=== PATIENT | female | born 1985 | race American Indian/Alaskan Native ===

== ENCOUNTER 2025-07-29 16:44 | Emergency (ER) | payer MEDICAID, OTHER ==
[~2025-07-29] VITALS: Ht 160 cm; Wt 114.0 kg
[~2025-07-29 16:44] MED LIST: ALDACTONE25 MG PO
[2025-07-29] MEDS ORDERED: SODIUM CHLORIDE 0.9% 500 ML IV ONE (17:15)
[2025-07-29] MEDS ORDERED: SODIUM CHLORIDE 0.9% 1,000 ML IV PRN (17:15)
[2025-07-29 17:22] LABS: BASOPHILS 0.6 % (0.1-1.2); EOSINOPHILS 0 % (0.7-5.8); LYMPHOCYTES 11.6 % (19.3-51.7); MCH 30.0 PG (25.6-32.2); MCHC 34.5 g/dL (32.2-35.5); MCV 86.9 fL (79.4-94.8); MONOCYTES 8.8 % (4.7-12.5); NEUTROPHILS 78.8 % (34.0-71.1); RBC 4.20 M/uL (3.93-5.22)
[2025-07-29 17:36] LABS: ALT (SGPT) 36.0 U/L (14-59); AST (SGOT) 61.0 U/L (15-37); GLOMERULAR FILTRATION RATE,EST 88.0 mL/min (>60); PROTEIN, TOTAL 7.6 g/dL (6.4-8.2); UREA NITROGEN 12.0 mg/dL (7-18)
[2025-07-29] MEDS ORDERED: ACETAMINOPHEN 500 MG TAB PO ONE (19:45)
[2025-07-29 19:51] LABS: BLOOD/HGB, URINE NEGATIVE (Negative); KETONE, URINE NEGATIVE (Negative); LEUK ESTERASE, URINE NEGATIVE (negative); NITRITE, URINE NEGATIVE (negative)
[2025-07-29] MEDS ORDERED: ONDANSETRON ODT8 MG PO (22:02)
[2025-07-29] MEDS ORDERED: LEVSIN-SL0.125 MG SL (22:02)
[2025-07-29] MEDS ORDERED: ONDANSETRON 4 MG HOME.PACK SL ONE (22:15)
[2025-07-29 22:33] VITALS: BP 131/80
== END 2025-07-29 22:34 | disposition home or self-care (01) ==
LOC: ED 16:44
PROVIDERS: Emergency Medicine
DX: K52.9 Noninfective gastroenteritis and colitis, unspecified (principal); J45.909 Unspecified asthma, uncomplicated; Z79.899 Other long term (current) drug therapy; Z88.5 Allergy status to narcotic agent
CPT/HCPCS: 36415; 74177; 80053; 81003; 83735; 84703; 85025; 96374; 99284-25; A9270; J2405; Q9967